=== PATIENT | female | born 1970 | race Caucasian/White ===

== ENCOUNTER 2020-09-24 08:28 | Emergency (ER) | payer BC, SELFPAY ==
[2020-09-24 08:28] VITALS: BP 145/104; PULSE 97; RESP 16; TEMP 36.8; O2SAT 97; BMI 26.2
--- NOTE | 2020-09-24 08:53 | EDS_ITS ---
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 She states she has had the back discomfort several times in the past year with some painful numbness there but not down the right lower e xtremity, but that is new in the past 3 or so days. She stood up and noticed it. She also has had some soreness in her right knee she had it swollen a couple days ago, she elevated and iced it and the swelling is down now, but she has pain in her anterior knee when she bends it and is limited there. Denies any fevers, chills, redness, or any other symptoms. PFSH PFSH no medical history Home Medications [place] wort 600 mg PO DAILY 09/24/20 [History Last Taken Unknown] ascorbic acid (vitamin C) [Vitamin C] 150 mg PO DAILY 09/24/20 [History Last Taken Unknown] [id number] [Glucosamine Chondroitin PLUS] 2 cap PO DAILY 09/24/20 [History Last Taken Unknown] magnesium 380 mg PO DAILY 09/24/20 [History Last Taken Unknown] prednisone 10 mg PO UD #33 tab 09/24/20 [Rx Last Taken Unknown] Allergy/AdvReac Type Severity Reaction Status Date / Time Sulfa (Sulfonamide Allergy Hives Verified 09/24/20 08:31 Antibiotics) Social History Smoking Status: Never smoker ROS ROS ED Constitutional Constitutional ED: Denies chills or fever(s) Gastrointestinal Gastrointestinal: Denies abdominal pain, constipation, fecal incontinence, nausea or vomiting Genitourinary Genitourinary ED: Reports other Details: no urinary retention ; Denies abdominal discomfort or urinary incontinence Musculoskeletal Musculoskeletal: Reports as per HPI and back pain; Denies neck pain Integumentary Denies rash or wounds Neurologic Neurologic: Reports as per HPI, paresthesias and radicular pain; Denies headache(s) or weakness EXAM Physical Exam Const Vital Signs: 09/24/20 08:28 Temperature 98.3 F Temperature Source Temporal Pulse Rate 97 Respiratory Rate 16 Blood Pressure 145/104 H Blood Pressure Mean 117 Pulse Ox 97 Oxygen Delivery Method Room Air Positive well nourished and well developed General Appearance ED: well developed and NAD HEENT Negative for trauma or tenderness Eyes PERRL and EOMs intact bilaterally Neck full ROM and supple GI normal to inspection, nondistended, normoactive bowel sounds, soft to palpation and non-tender Back/Spine normal to inspection Thoracic Spine / Upper Back: paraspinal muscle tenderness Lumbar Spine / Lower Back: ROM limited and straight leg raise negative bilaterally Extremity normal to inspection and no pedal edema Extremity Narrative: Limited range of motion with regards to the right knee only. Full range otherwise. Limited only with regards to flexion. She can fully extend it. Ligaments are all intact and stable without pain on stressing. She is tender at the right tibial tuberosity and the patellar ligament but not at the patellar tendon. No effusion. No bony tenderness. Neuro oriented x3 and no sensory deficits noted Sensorium / Orientation: alert Motor Exam: strength 5/5 throughout and clonus absent Deep Tendon Reflexes: Rt Patellar (L4): 2+, Lt Patellar (L4): 2+, Rt Ankle (S1): 2+ and Lt Ankle (S1): 2+ Deep Tendon Reflexes Back: Rt Patellar (L4): 2+, Lt Patellar (L4): 2+, Rt Ankle (S1): 2+ and Lt Ankle (S1): 2+ Plantar Reflex: Downgoing: bilateral Psych mental status grossly normal and thought process normal Skin no rashes or lesions noted and no wounds MDM MDM MDM Narrative Medical decision making narrative: I think this patient has 2 problems. Her exam is consistent with pain in the patellar ligament right now, she had no injuries I do not think she needs x-rays emergently. She also has symptoms of L4 radiculopathy coming from her lumbosacral spine. I think putting her on a short course of steroids would be reasonable to try since she has tried nothing yet, and giving her an Carlos wrap for her knee and having her follow-up. We discussed all this at length and she is comfortable with that plan. Discharge Plan Triage Chief Complaint: Back ED Provider: León Mark Dx/Rx/DC Orders Clinical Impression: Lumbosacral radiculopathy at L4, Patellofemoral syndrome of right knee Instructions: Evaluating Kneecap (Patella) Problems, ED Sciatica Prescriptions: New prednisone 10 mg tablet 10 mg PO UD Qty: 33 RF: 0 No Action Vitamin C 100 mg Tablet 150 mg PO DAILY RF: 0 [place] wort 300 mg Capsule 600 mg PO DAILY RF: 0 magnesium 200 mg Tablet 380 mg PO DAILY RF: 0 Glucosamine Chondroitin PLUS [id number] mg Capsule 2 cap PO DAILY RF: 0 Disposition Disposition: Home, self care
[2020-09-24] MEDS: predniSONE 20 MG Tablet 40 MG PO (09:06)
== END 2020-09-24 09:10 | disposition home or self-care (01) ==
LOC: ED 09:03
PROVIDERS: Emergency Provider Emergency Medicine
DX: M54.17 Radiculopathy, lumbosacral region (principal); Z79.52 Long term (current) use of systemic steroids; M25.561 Pain in right knee
CPT/HCPCS: 99283